=== PATIENT | male | born 1990 | race African-American/Black ===

== ENCOUNTER 2016-10-01 12:52 | Emergency (ER) | payer SELFPAY ==
--- NOTE | 2016-10-02 11:15 | NUR ---
Pt triggered on high ER risk list. SWS spoke with pt. He does not have a PCP. Mailed pt info on [facility] and [facility]. Pt states he is trying over the counter medications. Deny any other needs.
--- NOTE | 2016-10-02 13:58 | ER ---
ADMIT: 10/01/2016 RM/LOC: [facility] MR#: [id number] [address] YUSEF GUERRERONN [address] [place], [place] [id number] Emergency Room Report SEX: M AGE: 26 : 1990 DATE: 10/01/2016 CHIEF COMPLAINT: Sore throat. HISTORY OF PRESENT ILLNESS: A 26-year-old black male, who presents to the ER with 2 days duration of sore throat. States he was in contact with someone with upper respiratory symptoms last week. Last night, had difficulty with chills, cough, and runny nose. States his sore throat is worse with coughing and swallowing. He has not tried anything over the counter at this point for his symptoms. Admits to headache and muscle aches. Denies any perioral discharge, nausea, vomiting, shortness of breath, or chest pain. States his cough is dry, nonproductive. PAST MEDICAL HISTORY: No past medical history. SOCIAL HISTORY: Does smoke a half pack per day. COURSE IN THE EMERGENCY ROOM: Patient seen and examined. GENERAL: Afebrile, nontoxic, 98% on room air. He is alert in no acute distress. HEENT: Normocephalic atraumatic. No anterior cervical lymphadenopathy. Eyes equal and reactive pupils. No conjunctival injection or discharge. Pharynx is nonerythematous. No tonsillar exudates. Ears are nonerythematous, pearly white bilaterally. RESPIRATORY: Clear to auscultation bilaterally. No wheezes, rales, or rhonchi. HEART: Regular. SKIN: No rash. I did get a rapid strep test on him today, negative. Throat culture pending. ADMIT: 10/01/2016 RM/LOC: [facility] MR#: [id number] [address] [address] WALT GUERRERO [address] [place], [place] [id number] Emergency Room Report SEX: M AGE: 26 : 1990 I did give him 600 mg of ibuprofen p.o. prior to discharge. IMPRESSION: 1. Pharyngitis. 2. Upper respiratory tract infection, likely viral. DISPOSITION: The patient was discharged to increase fluids, use Tylenol or Motrin as needed for pain and fever. Return with worsening signs or follow up with his primary care provider. Did recommend using honey as needed for cough, also Zyrtec or Claritin or another criy-aua-xclgsyh antihistamine for some of his nasal congestion, discharge, and watery eye. Questions were sought and answered to best of my ability and patient's satisfaction. Discharged in stable condition. JOAQUINA Neumann / Tyrell Braxton MD / gracy JOB #: [id number] CC: Tyrell Braxton MD, Attending Physician
== END 2016-10-01 14:06 | disposition home or self-care (01) ==
LOC: ER 12:52
DX: J02.9 Acute pharyngitis, unspecified (principal); F17.210 Nicotine dependence, cigarettes, uncomplicated